=== PATIENT | male | born 1935 | race Caucasian/White ===

== ENCOUNTER 2018-08-03 09:56 | Emergency (ER) | payer MEDICARE, MEDICAID ==
[2018-08-03 10:17] VITALS: BP 107/63
--- NOTE | 2018-08-03 10:25 | EDM.PDOC ---
ED HPI GENERAL MEDICAL PROBLEM - General Chief Complaint: Neurological Problem Stated Complaint: CONFUSION-AMBULANCE Time Seen by Provider: 08/03/18 10:05 Source of Information: Reports: Patient History Limitations: Reports: No Limitations - History of Present Illness INITIAL COMMENTS - FREE TEXT/NARRATIVE: This 83 yo male patient was brought to the ED by [facility] due to confusion reported by the patient's family and a social service coordinator. The patient's daughter reported that she was talking to the patient on the phone last night and the patient stated that his phone does not work as he was talking to her on the phone. The patient reports nothing in wrong except for "a bunch of women getting together. " The patient reports he is feeling normal, but does not want to be here. The patient reports he has shortness of breath, but that is normal for him. The patient reports vision problems, but that has been continuous. The patient denies any chest pain, nausea, vomiting, diarrhea or frequent urination. The patient denies any recent falls. The patient reports decreased movement of his right leg, but states it has been the "bad one" for years. The patient's daughter report the patient was having "unusual confusion". The patient has difficulties ambulating at home. The patient could not get his briefs on. The patient did report to the social service coordinator that he was not feeling well, but the patient initially did not want to come to the ED. 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 - Related Data Allergies Allergy/AdvReac Type Severity Reaction Status Date / Time Penicillins Allergy Hives Verified 08/03/18 10:18 Home Meds: Home Meds Canagliflozin [Invokana] 1 tab PO DAILY 01/01/15 [History] Digoxin [Digox] 1 tab PO DAILY 01/01/15 [History] Dutasteride [Avodart] 1 cap PO DAILY 01/01/15 [History] Fesoterodine Fumarate [Toviaz] 1 tab PO DAILY 01/01/15 [History] Insulin Glarg,Human.Rec.Analog [LantUS Solostar] 40 units INJECT DAILY 01/01/15 [History] Metoprolol Succinate [Toprol XL] 1 tab PO DAILY 01/01/15 [History] Pregabalin [Lyrica] 1 tab PO TID 01/01/15 [History] Simvastatin 1 tab PO DAILY 01/01/15 [History] Tamsulosin [Flomax] 1 tab PO DAILY 01/01/15 [History] Warfarin [Coumadin] 1 tab PO DAILY 01/01/15 [History] Past Medical History HEENT History: Reports: Impaired Vision Cardiovascular History: Reports: Afib, High Cholesterol Respiratory History: Reports: COPD Gastrointestinal History: Reports: None Genitourinary History: Reports: Prostate Disorder Musculoskeletal History: Reports: None Neurological History: Reports: None Psychiatric History: Reports: Depression Endocrine/Metabolic History: Reports: Diabetes, Type II Hematologic History: Reports: None Immunologic History: Reports: None Oncologic (Cancer) History: Reports: None Dermatologic History: Reports: Other (See Below) Other Dermatologic History: sores under arms bilaterally and in groin area - Infectious Disease History Infectious Disease History: Reports: None - Past Surgical History Head Surgeries/Procedures: Reports: None Social & Family History - Family History Family Medical History: Noncontributory - Tobacco Use Smoking Status *Q: Current Every Day Smoker Years of Tobacco use: 40 Packs/Tins Daily: 1 - Caffeine Use Caffeine Use: Reports: Coffee, Soda - Recreational Drug Use Recreational Drug Use: No ED ROS GENERAL - Review of Systems Review Of Systems: ROS reveals no pertinent complaints other than HPI. - Physical Exam Exam: See Below Exam Limited By: No Limitations General Appearance: Alert, WD/WN, No Apparent Distress, Obese Eye Exam: Bilateral Eye: EOMI, Normal Inspection, PERRL, Other (Eyeglasses) Ears: Normal External Exam, Normal Canal, Hearing Grossly Normal, Normal TMs Nose: Normal Inspection, Normal Mucosa, No Blood Throat/Mouth: Normal Inspection, Normal Lips, Normal Teeth, Normal Gums, Normal Oropharynx, Normal Voice, No Airway Compromise, Other (dry) Head Exam: Atraumatic, Normocephalic Neck: Normal Inspection, Supple, Non-Tender, Full Range of Motion Respiratory/Chest: No Respiratory Distress, Lungs Clear, Chest Non-Tender, Decreased Breath Sounds Cardiovascular: Normal Peripheral Pulses, Regular Rate, Rhythm, No Gallop, No JVD, No Rub GI/Abdominal: Other (Morbid obesity) (Male) Exam: Deferred Rectal (Males) Exam: Deferred Neuro Exam (Abbreviated): Alert, Oriented, Normal Cognition Back Exam: Normal Inspection Extremities: Pedal Edema, Arm Pain (erythema of the left upper axilla) Psychiatric: Normal Affect, Normal Mood Skin Exam: Erythema (left axilla) Course - Vital Signs Last Recorded V/S: Last Vital Signs Temp 36.8 C 08/03/18 10:01 Pulse 73 08/03/18 10:01 Resp 20 08/03/18 10:01 BP 107/63 08/03/18 10:01 Pulse Ox 96 08/03/18 10:01 - Orders/Labs/Meds Orders: Active Orders 24 hr Category Date Time Status EKG Documentation Completion [RC] URGENT Care 08/03/18 10:10 Active CULTURE BLOOD [BC] Stat Lab 08/03/18 10:20 Received UA RFX WILBERTO AND CULT IF INDIC [URIN] Urgent Lab 08/03/18 10:10 Ordered Labs: Laboratory Tests 08/03/18 08/03/18 08/03/18 Range/Units 10:32 10:32 10:32 WBC (5.0-10.0) 10^3/uL RBC (4.6-6.2) 10^6/uL Hgb (14.0-18.0) g/dL Hct (40.0-54.0) % MCV (80-100) fL MCH (27.0-34.0) pg MCHC (33.0-35.0) g/dL Plt Count (150-450) 10^3/uL Neut % (Auto) (42.2-75.2) % Lymph % (Auto) (20.5-50.1) % [place] % (Auto) (2-8) % Eos % (Auto) (1.0-3.0) % Baso % (Auto) (0.0-1.0) % PT 43.9 H (9.0-12.0) SEC INR 4.6 H (0.9-1.2) Sodium (135-145) mmol/L Potassium (3.6-5.0) mmol/L Chloride (101-111) mmol/L Carbon Dioxide (21.0-31.0) mmol/L Anion Gap BUN (7-18) mg/dL Creatinine (0.6-1.3) mg/dL Est Cr Clr Drug Dosing mL/min Estimated GFR (MDRD) BUN/Creatinine Ratio Glucose (74-105) mg/dL Lactic Acid 1.7 (0.5-2.2) mmol/L Calcium (8.4-10.2) mg/dl Total Bilirubin (0.2-1.0) mg/dL AST (10-42) IU/L ALT (10-60) IU/L Alkaline Phosphatase (42-121) IU/L Troponin I (0.00-0.02) ng/ml B-Natriuretic Peptide 60 (0-100) pg/ml Total Protein (6.7-8.2) g/dl Albumin (3.2-5.5) g/dl Globulin Albumin/Globulin Ratio Digoxin (0-2.5) ng/ml 08/03/18 08/03/18 08/03/18 Range/Units 10:32 10:32 10:32 WBC 9.0 (5.0-10.0) 10^3/uL RBC 4.57 L (4.6-6.2) 10^6/uL Hgb 14.5 (14.0-18.0) g/dL Hct 45.3 (40.0-54.0) % MCV 99.1 D (80-100) fL MCH 31.7 (27.0-34.0) pg MCHC 32.0 L (33.0-35.0) g/dL Plt Count 218 (150-450) 10^3/uL Neut % (Auto) 61.3 (42.2-75.2) % Lymph % (Auto) 24.8 (20.5-50.1) % [place] % (Auto) 12.2 H (2-8) % Eos % (Auto) 1.3 (1.0-3.0) % Baso % (Auto) 0.4 (0.0-1.0) % PT (9.0-12.0) SEC INR (0.9-1.2) Sodium 137 (135-145) mmol/L Potassium 4.1 (3.6-5.0) mmol/L Chloride 101 (101-111) mmol/L Carbon Dioxide 26.0 (21.0-31.0) mmol/L Anion Gap 14.1 BUN 18 (7-18) mg/dL Creatinine 1.2 (0.6-1.3) mg/dL Est Cr Clr Drug Dosing 49.85 mL/min Estimated GFR (MDRD) 58 BUN/Creatinine Ratio 15.00 Glucose 93 (74-105) mg/dL Lactic Acid (0.5-2.2) mmol/L Calcium 8.9 (8.4-10.2) mg/dl Total Bilirubin 1.6 H (0.2-1.0) mg/dL AST 25 (10-42) IU/L ALT 12 (10-60) IU/L Alkaline Phosphatase 54 (42-121) IU/L Troponin I < 0.02 (0.00-0.02) ng/ml B-Natriuretic Peptide (0-100) pg/ml Total Protein 7.3 (6.7-8.2) g/dl Albumin 4.0 (3.2-5.5) g/dl Globulin 3.3 Albumin/Globulin Ratio 1.21 Digoxin 3.8 H* (0-2.5) ng/ml Departure - Departure Time of Disposition: 12:55 Disposition: Home, Self-Care 01 Condition: Fair Clinical Impression: Transient confusion - Discharge Information *PRESCRIPTION DRUG MONITORING PROGRAM REVIEWED*: Not Applicable *COPY OF PRESCRIPTION DRUG MONITORING REPORT IN PATIENT CLINT: Not Applicable Forms: ED Department Discharge Care Plan Goals: The patient was advised of the examination, lab and EKG results during the visit. No abnormalities were found on examination. The patient was encouraged to follow-up with his primary care facility for any additional symptoms. If the patient has any additional symptoms or concerns, the patient should either return to the emergency department or visit his primary care facility. - My Orders Last 24 Hours: My Active Orders 08/03/18 10:10 EKG Documentation Completion [RC] URGENT UA RFX WILBERTO AND CULT IF INDIC [URIN] Urgent 08/03/18 10:20 CULTURE BLOOD [BC] Stat - Assessment/Plan Last 24 Hours: My Active Orders 08/03/18 10:10 EKG Documentation Completion [RC] URGENT UA RFX WILBERTO AND CULT IF INDIC [URIN] Urgent 08/03/18 10:20 CULTURE BLOOD [BC] Stat
[2018-08-03 11:02] LABS: ANION GAP 14.1; CHLORIDE,CL 101 mmol/L (101-111); SODIUM,NA 137 mmol/L (135-145)
--- NOTE | 2018-08-03 11:43 | CR ---
Clinical history: 83-year-old male with shortness of breath and altered mentation. No previous chest radiographs available. Interpretation: Normal cardiac silhouette without signs of alveolar edema or dependent effusion. Reasonable inspiratory effort obese male. No lung mass, hilar lymphadenopathy or focal lobar pneumonia (lingular atelectasis/fibrosis). No pneumothorax.
== END 2018-08-03 13:26 | disposition home or self-care (01) ==
LOC: DL.ED 09:56
DX: R41.0 Disorientation, unspecified (principal); I48.91 Unspecified atrial fibrillation; E78.00 Pure hypercholesterolemia, unspecified; J44.9 Chronic obstructive pulmonary disease, unspecified; F17.210 Nicotine dependence, cigarettes, uncomplicated; Z88.0 Allergy status to penicillin; Z79.899 Other long term (current) drug therapy
CPT/HCPCS: 36415; 71045; 80053; 80162; 83605; 83880; 84484; 85025; 85610; 87040; 93005; 99284-25

== ENCOUNTER 2018-08-19 22:10 | Emergency (ER) | payer MEDICARE, MEDICAID ==
--- NOTE | 2018-08-19 22:11 | EDM.PDOC ---
<Kiran Clayton - Last Filed: 08/20/18 06:37> ED HPI GENERAL MEDICAL PROBLEM - General Chief Complaint: General Stated Complaint: AMBULANCE Time Seen by Provider: 08/19/18 22:08 Source of Information: Reports: Patient, EMS History Limitations: Reports: No Limitations - History of Present Illness INITIAL COMMENTS - FREE TEXT/NARRATIVE: EMS state called for pt with freq falls and neighbour concerned. pt refused to come to hosp and doesn't want alf. no c/o SPEARS/CP/SOB. states feels weak. EMS noticed pt confused. Left Axillary Pain Score (Numeric/FACES): 5 - Related Data Allergies Allergy/AdvReac Type Severity Reaction Status Date / Time Penicillins Allergy Hives Verified 08/03/18 10:18 Home Meds: Home Meds Canagliflozin [Invokana] 1 tab PO DAILY 01/01/15 [History] Digoxin [Digox] 1 tab PO DAILY 01/01/15 [History] Dutasteride [Avodart] 1 cap PO DAILY 01/01/15 [History] Fesoterodine Fumarate [Toviaz] 1 tab PO DAILY 01/01/15 [History] Insulin Glarg,Human.Rec.Analog [LantUS Solostar] 40 units INJECT DAILY 01/01/15 [History] Metoprolol Succinate [Toprol XL] 1 tab PO DAILY 01/01/15 [History] Pregabalin [Lyrica] 1 tab PO TID 01/01/15 [History] Simvastatin 1 tab PO DAILY 01/01/15 [History] Tamsulosin [Flomax] 1 tab PO DAILY 01/01/15 [History] Warfarin [Coumadin] 1 tab PO DAILY 01/01/15 [History] Azithromycin [Zithromax] 250 mg PO DAILY 08/19/18 [History] Past Medical History HEENT History: Reports: Impaired Vision Cardiovascular History: Reports: Afib, High Cholesterol Respiratory History: Reports: COPD Gastrointestinal History: Reports: None Genitourinary History: Reports: Prostate Disorder Musculoskeletal History: Reports: None Neurological History: Reports: None Psychiatric History: Reports: Depression Endocrine/Metabolic History: Reports: Diabetes, Type II Hematologic History: Reports: None Immunologic History: Reports: None Oncologic (Cancer) History: Reports: None Dermatologic History: Reports: Other (See Below) Other Dermatologic History: sores under arms bilaterally and in groin area - Infectious Disease History Infectious Disease History: Reports: None - Past Surgical History Head Surgeries/Procedures: Reports: None Social & Family History - Family History Family Medical History: Noncontributory - Caffeine Use Caffeine Use: Reports: Coffee, Soda ED ROS GENERAL - Review of Systems Review Of Systems: ROS reveals no pertinent complaints other than HPI. ED EXAM, GENERAL - Physical Exam Exam: See Below Exam Limited By: No Limitations General Appearance: Alert, WD/WN, No Apparent Distress Eye Exam: Bilateral Eye: PERRL (pupils ess ER @ 4mm) Ears: Hearing Grossly Normal Throat/Mouth: Normal Voice, No Airway Compromise Head: Atraumatic Neck: Non-Tender, Full Range of Motion Respiratory/Chest: No Respiratory Distress, No Accessory Muscle Use, Rhonchi Cardiovascular: Regular Rate, Rhythm GI/Abdominal: Soft, Non-Tender Neurological: Alert, Normal Cognition, No Motor/Sensory Deficits Psychiatric: Flat Affect Skin Exam: Warm, Dry, Rash, Other (inter-triginous dermatitis in skin fold of abd and axilla) Lymphatic: No Adenopathy Course - Vital Signs Last Recorded V/S: Last Vital Signs Temp 97.6 F 08/20/18 12:31 Pulse 71 08/20/18 12:31 Resp 20 08/20/18 12:31 BP 142/56 H 08/20/18 12:31 Pulse Ox 97 08/20/18 12:31 - Orders/Labs/Meds Orders: Active Orders 24 hr Category Date Time Status EKG 12 Lead [EKG Documentation Completion] [RC] STAT Care 08/19/18 22:07 Active Guillaume Catheter Insertion [Insert Urinary Catheter] [OM. Care 08/19/18 23:15 Ordered PC] Q24H Urinary Catheter Assessment [RC] ASDIRECTED Care 08/19/18 23:05 Active CULTURE BLOOD [BC] Stat Lab 08/19/18 22:10 Received Labs: Laboratory Tests 08/19/18 08/19/18 08/19/18 Range/Units 22:10 22:10 22:10 WBC 9.2 (5.0-10.0) 10^3/uL RBC 4.49 L (4.6-6.2) 10^6/uL Hgb 14.3 (14.0-18.0) g/dL Hct 43.8 (40.0-54.0) % MCV 97.6 (80-100) fL MCH 31.8 (27.0-34.0) pg MCHC 32.6 L (33.0-35.0) g/dL Plt Count 250 (150-450) 10^3/uL Neut % (Auto) 68.7 (42.2-75.2) % Lymph % (Auto) 18.9 L (20.5-50.1) % [place] % (Auto) 12.1 H (2-8) % Eos % (Auto) 0.1 L (1.0-3.0) % Baso % (Auto) 0.2 (0.0-1.0) % PT 32.1 H (9.0-12.0) SEC INR 3.3 H (0.9-1.2) Sodium 134 L (135-145) mmol/L Potassium 3.9 (3.6-5.0) mmol/L Chloride 101 (101-111) mmol/L Carbon Dioxide 23.0 (21.0-31.0) mmol/L Anion Gap 13.9 BUN 22 H (7-18) mg/dL Creatinine 1.3 (0.6-1.3) mg/dL Est Cr Clr Drug Dosing 48.91 mL/min Estimated GFR (MDRD) 53 BUN/Creatinine Ratio 16.92 Glucose 91 (74-105) mg/dL Lactic Acid (0.5-2.2) mmol/L Calcium 8.7 (8.4-10.2) mg/dl Total Bilirubin 1.7 H (0.2-1.0) mg/dL AST 21 (10-42) IU/L ALT 12 (10-60) IU/L Alkaline Phosphatase 56 (42-121) IU/L Troponin I 0.03 H* (0.00-0.02) ng/ml B-Natriuretic Peptide (0-100) pg/ml Total Protein 7.1 (6.7-8.2) g/dl Albumin 4.0 (3.2-5.5) g/dl Globulin 3.1 Albumin/Globulin Ratio 1.29 Urine Color (YELLOW) Urine Appearance (CLEAR) Urine pH (5.0-9.0) Ur Specific [place] (1.005-1.030) Urine Protein (NEGATIVE) Urine Glucose (UA) (NEGATIVE) Urine Ketones (NEGATIVE) Urine Occult Blood (NEGATIVE) Urine Nitrite (NEGATIVE) Urine Bilirubin (NEGATIVE) Urine Urobilinogen (0.2-1.0) mg/dL Ur Leukocyte Esterase (NEGATIVE) Urine RBC /HPF Urine WBC (0-5/HPF) /HPF Ur Epithelial Cells (NOT SEEN) /HPF Urine Bacteria (0-FEW/HPF) /HPF Urine Mucus (NOT SEEN) /LPF 08/19/18 08/19/18 08/19/18 Range/Units 22:10 22:10 23:15 WBC (5.0-10.0) 10^3/uL RBC (4.6-6.2) 10^6/uL Hgb (14.0-18.0) g/dL Hct (40.0-54.0) % MCV (80-100) fL MCH (27.0-34.0) pg MCHC (33.0-35.0) g/dL Plt Count (150-450) 10^3/uL Neut % (Auto) (42.2-75.2) % Lymph % (Auto) (20.5-50.1) % [place] % (Auto) (2-8) % Eos % (Auto) (1.0-3.0) % Baso % (Auto) (0.0-1.0) % PT (9.0-12.0) SEC INR (0.9-1.2) Sodium (135-145) mmol/L Potassium (3.6-5.0) mmol/L Chloride (101-111) mmol/L Carbon Dioxide (21.0-31.0) mmol/L Anion Gap BUN (7-18) mg/dL Creatinine (0.6-1.3) mg/dL Est Cr Clr Drug Dosing mL/min Estimated GFR (MDRD) BUN/Creatinine Ratio Glucose (74-105) mg/dL Lactic Acid 1.5 (0.5-2.2) mmol/L Calcium (8.4-10.2) mg/dl Total Bilirubin (0.2-1.0) mg/dL AST (10-42) IU/L ALT (10-60) IU/L Alkaline Phosphatase (42-121) IU/L Troponin I (0.00-0.02) ng/ml B-Natriuretic Peptide 128 H (0-100) pg/ml Total Protein (6.7-8.2) g/dl Albumin (3.2-5.5) g/dl Globulin Albumin/Globulin Ratio Urine Color Dark yellow (YELLOW) Urine Appearance Slightly cloudy (CLEAR) Urine pH 5.0 (5.0-9.0) Ur Specific [place] >= 1.030 (1.005-1.030) Urine Protein 30 H (NEGATIVE) Urine Glucose (UA) 500 H (NEGATIVE) Urine Ketones Trace H (NEGATIVE) Urine Occult Blood Negative (NEGATIVE) Urine Nitrite Negative (NEGATIVE) Urine Bilirubin Negative (NEGATIVE) Urine Urobilinogen 0.2 (0.2-1.0) mg/dL Ur Leukocyte Esterase Negative (NEGATIVE) Urine RBC Not seen /HPF Urine WBC 5-10 H (0-5/HPF) /HPF Ur Epithelial Cells Moderate H (NOT SEEN) /HPF Urine Bacteria Many H (0-FEW/HPF) /HPF Urine Mucus Many H (NOT SEEN) /LPF 08/20/18 Range/Units 06:49 WBC (5.0-10.0) 10^3/uL RBC (4.6-6.2) 10^6/uL Hgb (14.0-18.0) g/dL Hct (40.0-54.0) % MCV (80-100) fL MCH (27.0-34.0) pg MCHC (33.0-35.0) g/dL Plt Count (150-450) 10^3/uL Neut % (Auto) (42.2-75.2) % Lymph % (Auto) (20.5-50.1) % [place] % (Auto) (2-8) % Eos % (Auto) (1.0-3.0) % Baso % (Auto) (0.0-1.0) % PT (9.0-12.0) SEC INR (0.9-1.2) Sodium (135-145) mmol/L Potassium (3.6-5.0) mmol/L Chloride (101-111) mmol/L Carbon Dioxide (21.0-31.0) mmol/L Anion Gap BUN (7-18) mg/dL Creatinine (0.6-1.3) mg/dL Est Cr Clr Drug Dosing mL/min Estimated GFR (MDRD) BUN/Creatinine Ratio Glucose (74-105) mg/dL Lactic Acid (0.5-2.2) mmol/L Calcium (8.4-10.2) mg/dl Total Bilirubin (0.2-1.0) mg/dL AST (10-42) IU/L ALT (10-60) IU/L Alkaline Phosphatase (42-121) IU/L Troponin I 0.02 (0.00-0.02) ng/ml B-Natriuretic Peptide (0-100) pg/ml Total Protein (6.7-8.2) g/dl Albumin (3.2-5.5) g/dl Globulin Albumin/Globulin Ratio Urine Color (YELLOW) Urine Appearance (CLEAR) Urine pH (5.0-9.0) Ur Specific [place] (1.005-1.030) Urine Protein (NEGATIVE) Urine Glucose (UA) (NEGATIVE) Urine Ketones (NEGATIVE) Urine Occult Blood (NEGATIVE) Urine Nitrite (NEGATIVE) Urine Bilirubin (NEGATIVE) Urine Urobilinogen (0.2-1.0) mg/dL Ur Leukocyte Esterase (NEGATIVE) Urine RBC /HPF Urine WBC (0-5/HPF) /HPF Ur Epithelial Cells (NOT SEEN) /HPF Urine Bacteria (0-FEW/HPF) /HPF Urine Mucus (NOT SEEN) /LPF Meds: Medications Discontinued Medications Generic Name Dose Route Start Last Admin Trade Name Angelica PRN Reason Stop Dose Admin Loperamide HCl 2 mg 08/20/18 14:44 08/20/18 15:07 Imodium PO 08/20/18 14:45 2 mg ONETIME ONE Administration - Re-Assessments/Exams Free Text/Narrative Re-Assessment/Exam: 08/20/18 00:[address] Fam who kindly admitted pt to observation. but pt refused to be admitted and shushed away Dr Fam. pt's daughter did mention pt has also been quite resistance towards her about alf placement. 08/20/18 06:38 Caio from crisis contacted who states Roxana from social service assistant will be arriving to arrange placement for pt as vulnerable adult Departure - Departure Time of Disposition: 00:04 Disposition: Against Medical Advice 07 Condition: Fair Clinical Impression: Transient confusion, UTI, Urinary tract infectious disease, COPD exacerbation, Pneumonia, Hypoxemia, Non compliance with medical treatment - Discharge Information Referrals: PCP,None [Primary Care Provider] - Forms: Refusal of Care AMA <Ida Patel - Last Filed: 08/20/18 16:06> Departure - Departure Time of Disposition: 15:50 Condition: Poor - Discharge Information *PRESCRIPTION DRUG MONITORING PROGRAM REVIEWED*: No *COPY OF PRESCRIPTION DRUG MONITORING REPORT IN PATIENT CLINT: No
[2018-08-19 22:38] LABS: ANION GAP 13.9
[2018-08-20 12:32] VITALS: BP 142/56
[2018-08-20] MEDS ORDERED: Loperamide 2 MG Cap PO ONE (14:44)
== END 2018-08-20 15:15 | disposition left against medical advice (07) ==
LOC: DL.ED 22:10
DX: R41.0 Disorientation, unspecified (principal); N39.0 Urinary tract infection, site not specified; J44.0 Chronic obstructive pulmonary disease with (acute) lower respiratory infection; J18.9 Pneumonia, unspecified organism; J44.1 Chronic obstructive pulmonary disease with (acute) exacerbation; R29.6 Repeated falls; R09.02 Hypoxemia; Z91.14 Patient's other noncompliance with medication regimen; I48.91 Unspecified atrial fibrillation; E11.9 Type 2 diabetes mellitus without complications; Z79.01 Long term (current) use of anticoagulants; Z79.899 Other long term (current) drug therapy; Z79.4 Long term (current) use of insulin; Z88.0 Allergy status to penicillin
CPT/HCPCS: 36415; 51702; 70450; 71045; 80053; 81001; 83605; 83880; 84484; 85025; 85610; 87040; 93005; 99285; A9270

== ENCOUNTER 2018-09-06 17:15 | Emergency (ER) | payer MEDICARE, MEDICAID ==
[2018-09-06 18:20] LABS: ANION GAP 17.1; CHLORIDE,CL 101 mmol/L (101-111); SODIUM,NA 137 mmol/L (135-145)
[2018-09-06] MEDS ORDERED: LORazepam 2 MG/ML Syringe IVPUSH ONE (19:37)
[2018-09-06 20:30] VITALS: BP 105/44
[2018-09-06] MEDS ORDERED: Sodium Chloride 0.9% 1,000 ML IV ONE (20:54)
[2018-09-06] MEDS ORDERED: 50% Dextrose in Water 50 ML Syringe IVPUSH ONE (20:58)
--- NOTE | 2018-09-07 12:44 | EDM.PDOC ---
Scribed by Brigette Andrew 09/06/18 [id number] for Solo Sheets PA <Milagros Pedroza - Last Filed: 09/07/18 04:10> ED HPI GENERAL MEDICAL PROBLEM - General Chief Complaint: General Stated Complaint: AMBULANCE Time Seen by Provider: 09/06/18 17:45 - Related Data Allergies Allergy/AdvReac Type Severity Reaction Status Date / Time Penicillins Allergy Hives Verified 08/03/18 10:18 Home Meds: Home Meds Canagliflozin [Invokana] 1 tab PO DAILY 01/01/15 [History] Digoxin [Digox] 1 tab PO DAILY 01/01/15 [History] Dutasteride [Avodart] 1 cap PO DAILY 01/01/15 [History] Fesoterodine Fumarate [Toviaz] 1 tab PO DAILY 01/01/15 [History] Insulin Glarg,Human.Rec.Analog [LantUS Solostar] 40 units INJECT DAILY 01/01/15 [History] Metoprolol Succinate [Toprol XL] 1 tab PO DAILY 01/01/15 [History] Pregabalin [Lyrica] 1 tab PO TID 01/01/15 [History] Simvastatin 1 tab PO DAILY 01/01/15 [History] Tamsulosin [Flomax] 1 tab PO DAILY 01/01/15 [History] Warfarin [Coumadin] 1 tab PO DAILY 01/01/15 [History] Azithromycin [Zithromax] 250 mg PO DAILY 08/19/18 [History] ED EXAM, GENERAL - Physical Exam Respiratory/Chest: Wheezing (expiratory bilateral) Extremities: Pedal Edema (3+) Skin Exam: Warm, Dry, Rash (dry scaley anterior legs and feet. sudhir area excoriated), Other Course - Vital Signs Last Recorded V/S: Last Vital Signs Temp 36.6 C 09/06/18 20:29 Pulse 68 09/06/18 20:29 Resp 18 09/06/18 20:29 BP 105/44 L 09/06/18 20:29 Pulse Ox 84 L 09/06/18 20:29 - Orders/Labs/Meds Orders: Active Orders 24 hr Category Date Time Status EKG Documentation Completion [RC] URGENT Care 09/06/18 17:24 Active Glucose [Blood Glucose Check, Bedside] [RC] ONETIME Care 09/06/18 20:54 Active CULTURE BLOOD [BC] Stat Lab 09/06/18 17:40 Received CULTURE URINE [RM] Stat Lab 09/06/18 17:30 Received Labs: Laboratory Tests 09/06/18 09/06/18 09/06/18 Range/Units 17:30 17:30 17:40 WBC (5.0-10.0) 10^3/uL RBC (4.6-6.2) 10^6/uL Hgb (14.0-18.0) g/dL Hct (40.0-54.0) % MCV (80-100) fL MCH (27.0-34.0) pg MCHC (33.0-35.0) g/dL Plt Count (150-450) 10^3/uL Neut % (Auto) (42.2-75.2) % Lymph % (Auto) (20.5-50.1) % [place] % (Auto) (2-8) % Eos % (Auto) (1.0-3.0) % Baso % (Auto) (0.0-1.0) % PT (9.0-12.0) SEC INR (0.9-1.2) Sodium (135-145) mmol/L Potassium (3.6-5.0) mmol/L Chloride (101-111) mmol/L Carbon Dioxide (21.0-31.0) mmol/L Anion Gap BUN (7-18) mg/dL Creatinine (0.6-1.3) mg/dL Est Cr Clr Drug Dosing Estimated GFR (MDRD) BUN/Creatinine Ratio Glucose (74-105) mg/dL POC Glucose (83-110) mg/dl Lactic Acid (0.5-2.2) mmol/L Calcium (8.4-10.2) mg/dl Total Bilirubin (0.2-1.0) mg/dL AST (10-42) IU/L ALT (10-60) IU/L Alkaline Phosphatase (42-121) IU/L Ammonia (11-35) umol/L Troponin I (0.00-0.02) ng/ml Total Protein (6.7-8.2) g/dl Albumin (3.2-5.5) g/dl Globulin Albumin/Globulin Ratio Amylase 18 L (28-100) U/L Lipase 18 L (22-51) U/L Urine Color Yellow (YELLOW) Urine Appearance Turbid (CLEAR) Urine pH 6.0 (5.0-9.0) Ur Specific [place] 1.015 (1.005-1.030) Urine Protein 30 H (NEGATIVE) Urine Glucose (UA) >=1000 H (NEGATIVE) Urine Ketones Trace H (NEGATIVE) Urine Occult Blood Large H (NEGATIVE) Urine Nitrite Negative (NEGATIVE) Urine Bilirubin Negative (NEGATIVE) Urine Urobilinogen 1.0 (0.2-1.0) mg/dL Ur Leukocyte Esterase Small H (NEGATIVE) Urine RBC >100 H /HPF Urine WBC Packed H (0-5/HPF) /HPF Ur Epithelial Cells Few (NOT SEEN) /HPF Amorphous Sediment Few (NOT SEEN) /HPF Urine Bacteria Moderate H (0-FEW/HPF) /HPF Urine Mucus Few H (NOT SEEN) /LPF Urine Yeast Many H (NOT SEEN) /HPF Urine Opiates Screen Negative (NEGATIVE) Ur Oxycodone Screen Negative (NEGATIVE) Urine Methadone Screen Negative (NEGATIVE) Ur Barbiturates Screen Negative (NEGATIVE) U Tricyclic Antidepress Negative (NEGATIVE) Ur Phencyclidine Scrn Negative (NEGATIVE) Ur Amphetamine Screen Negative (NEGATIVE) U Methamphetamines Scrn Negative (NEGATIVE) Urine MDMA Screen Negative (NEGATIVE) U Benzodiazepines Scrn Negative (NEGATIVE) Urine Cocaine Screen Negative (NEGATIVE) U Marijuana (THC) Screen Negative (NEGATIVE) Ethyl Alcohol < 5 mg/dL 09/06/18 09/06/18 09/06/18 Range/Units 17:40 17:40 17:40 WBC 7.5 (5.0-10.0) 10^3/uL RBC 4.90 (4.6-6.2) 10^6/uL Hgb 15.5 (14.0-18.0) g/dL Hct 47.6 (40.0-54.0) % MCV 97.1 (80-100) fL MCH 31.6 (27.0-34.0) pg MCHC 32.6 L (33.0-35.0) g/dL Plt Count 239 (150-450) 10^3/uL Neut % (Auto) 74.3 (42.2-75.2) % Lymph % (Auto) 12.1 L (20.5-50.1) % [place] % (Auto) 12.9 H (2-8) % Eos % (Auto) 0.4 L (1.0-3.0) % Baso % (Auto) 0.3 (0.0-1.0) % PT (9.0-12.0) SEC INR (0.9-1.2) Sodium (135-145) mmol/L Potassium (3.6-5.0) mmol/L Chloride (101-111) mmol/L Carbon Dioxide (21.0-31.0) mmol/L Anion Gap BUN (7-18) mg/dL Creatinine (0.6-1.3) mg/dL Est Cr Clr Drug Dosing Estimated GFR (MDRD) BUN/Creatinine Ratio Glucose (74-105) mg/dL POC Glucose (83-110) mg/dl Lactic Acid 2.0 (0.5-2.2) mmol/L Calcium (8.4-10.2) mg/dl Total Bilirubin (0.2-1.0) mg/dL AST (10-42) IU/L ALT (10-60) IU/L Alkaline Phosphatase (42-121) IU/L Ammonia 13 (11-35) umol/L Troponin I (0.00-0.02) ng/ml Total Protein (6.7-8.2) g/dl Albumin (3.2-5.5) g/dl Globulin Albumin/Globulin Ratio Amylase (28-100) U/L Lipase (22-51) U/L Urine Color (YELLOW) Urine Appearance (CLEAR) Urine pH (5.0-9.0) Ur Specific [place] (1.005-1.030) Urine Protein (NEGATIVE) Urine Glucose (UA) (NEGATIVE) Urine Ketones (NEGATIVE) Urine Occult Blood (NEGATIVE) Urine Nitrite (NEGATIVE) Urine Bilirubin (NEGATIVE) Urine Urobilinogen (0.2-1.0) mg/dL Ur Leukocyte Esterase (NEGATIVE) Urine RBC /HPF Urine WBC (0-5/HPF) /HPF Ur Epithelial Cells (NOT SEEN) /HPF Amorphous Sediment (NOT SEEN) /HPF Urine Bacteria (0-FEW/HPF) /HPF Urine Mucus (NOT SEEN) /LPF Urine Yeast (NOT SEEN) /HPF Urine Opiates Screen (NEGATIVE) Ur Oxycodone Screen (NEGATIVE) Urine Methadone Screen (NEGATIVE) Ur Barbiturates Screen (NEGATIVE) U Tricyclic Antidepress (NEGATIVE) Ur Phencyclidine Scrn (NEGATIVE) Ur Amphetamine Screen (NEGATIVE) U Methamphetamines Scrn (NEGATIVE) Urine MDMA Screen (NEGATIVE) U Benzodiazepines Scrn (NEGATIVE) Urine Cocaine Screen (NEGATIVE) U Marijuana (THC) Screen (NEGATIVE) Ethyl Alcohol mg/dL 09/06/18 09/06/18 09/06/18 Range/Units 17:40 17:40 20:57 WBC (5.0-10.0) 10^3/uL RBC (4.6-6.2) 10^6/uL Hgb (14.0-18.0) g/dL Hct (40.0-54.0) % MCV (80-100) fL MCH (27.0-34.0) pg MCHC (33.0-35.0) g/dL Plt Count (150-450) 10^3/uL Neut % (Auto) (42.2-75.2) % Lymph % (Auto) (20.5-50.1) % [place] % (Auto) (2-8) % Eos % (Auto) (1.0-3.0) % Baso % (Auto) (0.0-1.0) % PT 54.6 H D (9.0-12.0) SEC INR 5.9 H* (0.9-1.2) Sodium 137 (135-145) mmol/L Potassium 4.1 (3.6-5.0) mmol/L Chloride 101 (101-111) mmol/L Carbon Dioxide 23.0 (21.0-31.0) mmol/L Anion Gap 17.1 BUN 21 H (7-18) mg/dL Creatinine 1.1 (0.6-1.3) mg/dL Est Cr Clr Drug Dosing TNP Estimated GFR (MDRD) > 60 BUN/Creatinine Ratio 19.09 Glucose 93 (74-105) mg/dL POC Glucose 50 L (83-110) mg/dl Lactic Acid (0.5-2.2) mmol/L Calcium 9.0 (8.4-10.2) mg/dl Total Bilirubin 1.5 H (0.2-1.0) mg/dL AST 36 (10-42) IU/L ALT 18 (10-60) IU/L Alkaline Phosphatase 75 (42-121) IU/L Ammonia (11-35) umol/L Troponin I < 0.02 (0.00-0.02) ng/ml Total Protein 7.5 (6.7-8.2) g/dl Albumin 4.1 (3.2-5.5) g/dl Globulin 3.4 Albumin/Globulin Ratio 1.21 Amylase (28-100) U/L Lipase (22-51) U/L Urine Color (YELLOW) Urine Appearance (CLEAR) Urine pH (5.0-9.0) Ur Specific [place] (1.005-1.030) Urine Protein (NEGATIVE) Urine Glucose (UA) (NEGATIVE) Urine Ketones (NEGATIVE) Urine Occult Blood (NEGATIVE) Urine Nitrite (NEGATIVE) Urine Bilirubin (NEGATIVE) Urine Urobilinogen (0.2-1.0) mg/dL Ur Leukocyte Esterase (NEGATIVE) Urine RBC /HPF Urine WBC (0-5/HPF) /HPF Ur Epithelial Cells (NOT SEEN) /HPF Amorphous Sediment (NOT SEEN) /HPF Urine Bacteria (0-FEW/HPF) /HPF Urine Mucus (NOT SEEN) /LPF Urine Yeast (NOT SEEN) /HPF Urine Opiates Screen (NEGATIVE) Ur Oxycodone Screen (NEGATIVE) Urine Methadone Screen (NEGATIVE) Ur Barbiturates Screen (NEGATIVE) U Tricyclic Antidepress (NEGATIVE) Ur Phencyclidine Scrn (NEGATIVE) Ur Amphetamine Screen (NEGATIVE) U Methamphetamines Scrn (NEGATIVE) Urine MDMA Screen (NEGATIVE) U Benzodiazepines Scrn (NEGATIVE) Urine Cocaine Screen (NEGATIVE) U Marijuana (THC) Screen (NEGATIVE) Ethyl Alcohol mg/dL Meds: Medications Discontinued Medications Generic Name Dose Route Start Last Admin Trade Name Angelica PRN Reason Stop Dose Admin Dextrose/Water 50 ml 09/06/18 20:58 09/06/18 21:05 Dextrose 50% In Water IVPUSH 09/06/18 20:59 50 ml ONETIME ONE Administration Aztreonam 1 gm/ Sodium 50 mls @ 100 mls/hr 09/06/18 20:29 09/06/18 20:46 Chloride IV 09/06/18 20:58 100 mls/hr ONETIME ONE Administration Sodium Chloride 1,000 mls @ 150 mls/hr 09/06/18 20:54 09/06/18 21:14 Normal Saline IV 09/07/18 03:33 150 mls/hr .BOLUS ONE Administration Lorazepam 2 mg 09/06/18 19:37 09/06/18 19:45 Ativan IVPUSH 09/06/18 19:38 2 mg ONETIME ONE Administration - Re-Assessments/Exams Free Text/Narrative Re-Assessment/Exam: TC received from "Crisis Counselor" Currently working on obtaining Order from [facility] for committal due to inability to care for self and potential risk to others when smoking with oxygen. Patient easily agitated striking at nurses. Attempting to get out of bed around rails. Head CT not done yet, will medicate with Ativan in order to obtain Head CT. Initial TC Dr Corrigan. Awaiting head CT results. 09/06/18 20:57 Results of xray and CT relayed to Dr Meenu Hanna. Accepting of patient. Transfe via [facility] Departure - Departure Time of Disposition: 20:51 Disposition: DC/Tfer to Acute Hospital 02 Condition: Undetermined Clinical Impression: Elevated INR, Alteration in self-care ability, Non compliance with medical treatment, Skin tear, IDDM (insulin dependent diabetes mellitus) UTI (urinary tract infection) Qualifiers: Urinary tract infection type: site unspecified Hematuria presence: with hematuria Qualified Code(s): N39.0 - Urinary tract infection, site not specified ; R31.9 - Hematuria, unspecified Fall at home Qualifiers: Encounter type: initial encounter Qualified Code(s): W19.XXXA - Unspecified fall, initial encounter; Y92.009 - Unspecified place in unspecified non- institutional (private) residence as the place of occurrence of the external cause Contusion of left temporofrontal scalp Qualifiers: Encounter type: initial encounter Qualified Code(s): S00.03XA - Contusion of scalp, initial encounter COPD (chronic obstructive pulmonary disease) Qualifiers: COPD type: unspecified COPD Qualified Code(s): J44.9 - Chronic obstructive pulmonary disease, unspecified Altered mental status, unspecified Qualifiers: Altered mental status type: transient alteration of awareness Qualified Code(s) : R40.4 - Transient alteration of awareness - Discharge Information Referrals: PCP,None [Primary Care Provider] - Forms: ED Department Discharge - My Orders Last 24 Hours: My Active Orders 09/06/18 17:24 EKG Documentation Completion [RC] URGENT 09/06/18 17:30 CULTURE URINE [RM] Stat 09/06/18 17:40 CULTURE BLOOD [BC] Stat - Assessment/Plan Last 24 Hours: My Active Orders 09/06/18 17:24 EKG Documentation Completion [RC] URGENT 09/06/18 17:30 CULTURE URINE [RM] Stat 09/06/18 17:40 CULTURE BLOOD [BC] Stat <Solo Sheets M - Last Filed: 09/07/18 12:44> ED HPI GENERAL MEDICAL PROBLEM - General Source of Information: Reports: Patient, EMS, EMS Notes Reviewed, RN, RN Notes Reviewed History Limitations: Reports: No Limitations - History of Present Illness INITIAL COMMENTS - FREE TEXT/NARRATIVE: Patient is an 83-year-old male who was brought to the Emergency Department by [facility] due to a fall and confusion. The patient reports he was getting out of the bathroom when he fell. The patient reports he knew he was going down, but could not catch himself. The patient lives by himself. The patient reports he took his antibiotics (last dose was Thursday). The patient was alert and oriented to person, place and time. The patient was seen in the emergency department 2 weeks ago for a UTI. The patient presented with urine soaked pants, urine soaked Depends and a urine soiled Depends in his pocket. Onset: Today Duration: Getting Worse Location: Reports: Generalized Quality: Reports: Ache Severity: Mild Improves with: Reports: None Worsens with: Reports: None Associated Symptoms: Reports: No Other Symptoms Past Medical History HEENT History: Reports: Impaired Vision Cardiovascular History: Reports: Afib, High Cholesterol Respiratory History: Reports: COPD Other Respiratory History: Patient still smokes Gastrointestinal History: Reports: None Genitourinary History: Reports: Prostate Disorder, UTI, Recurrent Musculoskeletal History: Reports: None Neurological History: Reports: None Psychiatric History: Reports: Depression Endocrine/Metabolic History: Reports: Diabetes, Type II Hematologic History: Reports: None Immunologic History: Reports: None Oncologic (Cancer) History: Reports: None Dermatologic History: Reports: Other (See Below) Other Dermatologic History: sores under arms bilaterally and in groin area - Infectious Disease History Infectious Disease History: Reports: None - Past Surgical History Head Surgeries/Procedures: Reports: None Social & Family History - Family History Family Medical History: Noncontributory - Caffeine Use Caffeine Use: Reports: Coffee ED ROS GENERAL - Review of Systems Review Of Systems: ROS reveals no pertinent complaints other than HPI. ED EXAM, GENERAL - Physical Exam Exam: See Below Exam Limited By: No Limitations General Appearance: Other (unkempt) Eye Exam: Bilateral Eye: EOMI, Normal Inspection, PERRL Ears: Normal External Exam, Normal Canal, Hearing Grossly Normal, Normal TMs Nose: Normal Inspection, Normal Mucosa, No Blood Throat/Mouth: Normal Inspection, Normal Lips, Normal Teeth, Normal Gums, Normal Oropharynx, Normal Voice, No Airway Compromise Head: Atraumatic, Normocephalic Neck: Normal Inspection, Supple, Non-Tender, Full Range of Motion Respiratory/Chest: No Respiratory Distress, Lungs Clear, Normal Breath Sounds, No Accessory Muscle Use, Chest Non-Tender Cardiovascular: Normal Peripheral Pulses, Regular Rate, Rhythm, No Edema, No Gallop, No JVD, No Murmur, No Rub GI/Abdominal: Other (obese) (Male) Exam: Deferred Rectal (Males) Exam: Deferred Back Exam: Normal Inspection, Full Range of Motion, NT Extremities: Normal Inspection, Normal Range of Motion, Non-Tender, Normal Capillary Refill, No Pedal Edema Neurological: Alert, Oriented, CN II-XII Intact, Normal Cognition, Normal Gait, Normal Reflexes, No Motor/Sensory Deficits Psychiatric: Normal Affect, Normal Mood Skin Exam: Other (skin tear left hand and knee. ) Course - Vital Signs Last Recorded V/S: Last Vital Signs Temp 36.6 C 09/06/18 20:29 Pulse 68 09/06/18 20:29 Resp 18 09/06/18 20:29 BP 105/44 L 09/06/18 20:29 Pulse Ox 84 L 09/06/18 20:29 - Orders/Labs/Meds Orders: Active Orders 24 hr Category Date Time Status EKG Documentation Completion [RC] URGENT Care 09/06/18 17:24 Active Glucose [Blood Glucose Check, Bedside] [RC] ONETIME Care 09/06/18 20:54 Active CULTURE BLOOD [BC] Stat Lab 09/06/18 17:40 Received CULTURE URINE [RM] Stat Lab 09/06/18 17:30 Received Labs: Laboratory Tests 09/06/18 09/06/18 09/06/18 Range/Units 17:30 17:30 17:40 WBC (5.0-10.0) 10^3/uL RBC (4.6-6.2) 10^6/uL Hgb (14.0-18.0) g/dL Hct (40.0-54.0) % MCV (80-100) fL MCH (27.0-34.0) pg MCHC (33.0-35.0) g/dL Plt Count (150-450) 10^3/uL Neut % (Auto) (42.2-75.2) % Lymph % (Auto) (20.5-50.1) % [place] % (Auto) (2-8) % Eos % (Auto) (1.0-3.0) % Baso % (Auto) (0.0-1.0) % PT (9.0-12.0) SEC INR (0.9-1.2) Sodium (135-145) mmol/L Potassium (3.6-5.0) mmol/L Chloride (101-111) mmol/L Carbon Dioxide (21.0-31.0) mmol/L Anion Gap BUN (7-18) mg/dL Creatinine (0.6-1.3) mg/dL Est Cr Clr Drug Dosing Estimated GFR (MDRD) BUN/Creatinine Ratio Glucose (74-105) mg/dL POC Glucose (83-110) mg/dl Lactic Acid (0.5-2.2) mmol/L Calcium (8.4-10.2) mg/dl Total Bilirubin (0.2-1.0) mg/dL AST (10-42) IU/L ALT (10-60) IU/L Alkaline Phosphatase (42-121) IU/L Ammonia (11-35) umol/L Troponin I (0.00-0.02) ng/ml Total Protein (6.7-8.2) g/dl Albumin (3.2-5.5) g/dl Globulin Albumin/Globulin Ratio Amylase 18 L (28-100) U/L Lipase 18 L (22-51) U/L Urine Color Yellow (YELLOW) Urine Appearance Turbid (CLEAR) Urine pH 6.0 (5.0-9.0) Ur Specific [place] 1.015 (1.005-1.030) Urine Protein 30 H (NEGATIVE) Urine Glucose (UA) >=1000 H (NEGATIVE) Urine Ketones Trace H (NEGATIVE) Urine Occult Blood Large H (NEGATIVE) Urine Nitrite Negative (NEGATIVE) Urine Bilirubin Negative (NEGATIVE) Urine Urobilinogen 1.0 (0.2-1.0) mg/dL Ur Leukocyte Esterase Small H (NEGATIVE) Urine RBC >100 H /HPF Urine WBC Packed H (0-5/HPF) /HPF Ur Epithelial Cells Few (NOT SEEN) /HPF Amorphous Sediment Few (NOT SEEN) /HPF Urine Bacteria Moderate H (0-FEW/HPF) /HPF Urine Mucus Few H (NOT SEEN) /LPF Urine Yeast Many H (NOT SEEN) /HPF Urine Opiates Screen Negative (NEGATIVE) Ur Oxycodone Screen Negative (NEGATIVE) Urine Methadone Screen Negative (NEGATIVE) Ur Barbiturates Screen Negative (NEGATIVE) U Tricyclic Antidepress Negative (NEGATIVE) Ur Phencyclidine Scrn Negative (NEGATIVE) Ur Amphetamine Screen Negative (NEGATIVE) U Methamphetamines Scrn Negative (NEGATIVE) Urine MDMA Screen Negative (NEGATIVE) U Benzodiazepines Scrn Negative (NEGATIVE) Urine Cocaine Screen Negative (NEGATIVE) U Marijuana (THC) Screen Negative (NEGATIVE) Ethyl Alcohol < 5 mg/dL 09/06/18 09/06/18 09/06/18 Range/Units 17:40 17:40 17:40 WBC 7.5 (5.0-10.0) 10^3/uL RBC 4.90 (4.6-6.2) 10^6/uL Hgb 15.5 (14.0-18.0) g/dL Hct 47.6 (40.0-54.0) % MCV 97.1 (80-100) fL MCH 31.6 (27.0-34.0) pg MCHC 32.6 L (33.0-35.0) g/dL Plt Count 239 (150-450) 10^3/uL Neut % (Auto) 74.3 (42.2-75.2) % Lymph % (Auto) 12.1 L (20.5-50.1) % [place] % (Auto) 12.9 H (2-8) % Eos % (Auto) 0.4 L (1.0-3.0) % Baso % (Auto) 0.3 (0.0-1.0) % PT (9.0-12.0) SEC INR (0.9-1.2) Sodium (135-145) mmol/L Potassium (3.6-5.0) mmol/L Chloride (101-111) mmol/L Carbon Dioxide (21.0-31.0) mmol/L Anion Gap BUN (7-18) mg/dL Creatinine (0.6-1.3) mg/dL Est Cr Clr Drug Dosing Estimated GFR (MDRD) BUN/Creatinine Ratio Glucose (74-105) mg/dL POC Glucose (83-110) mg/dl Lactic Acid 2.0 (0.5-2.2) mmol/L Calcium (8.4-10.2) mg/dl Total Bilirubin (0.2-1.0) mg/dL AST (10-42) IU/L ALT (10-60) IU/L Alkaline Phosphatase (42-121) IU/L Ammonia 13 (11-35) umol/L Troponin I (0.00-0.02) ng/ml Total Protein (6.7-8.2) g/dl Albumin (3.2-5.5) g/dl Globulin Albumin/Globulin Ratio Amylase (28-100) U/L Lipase (22-51) U/L Urine Color (YELLOW) Urine Appearance (CLEAR) Urine pH (5.0-9.0) Ur Specific [place] (1.005-1.030) Urine Protein (NEGATIVE) Urine Glucose (UA) (NEGATIVE) Urine Ketones (NEGATIVE) Urine Occult Blood (NEGATIVE) Urine Nitrite (NEGATIVE) Urine Bilirubin (NEGATIVE) Urine Urobilinogen (0.2-1.0) mg/dL Ur Leukocyte Esterase (NEGATIVE) Urine RBC /HPF Urine WBC (0-5/HPF) /HPF Ur Epithelial Cells (NOT SEEN) /HPF Amorphous Sediment (NOT SEEN) /HPF Urine Bacteria (0-FEW/HPF) /HPF Urine Mucus (NOT SEEN) /LPF Urine Yeast (NOT SEEN) /HPF Urine Opiates Screen (NEGATIVE) Ur Oxycodone Screen (NEGATIVE) Urine Methadone Screen (NEGATIVE) Ur Barbiturates Screen (NEGATIVE) U Tricyclic Antidepress (NEGATIVE) Ur Phencyclidine Scrn (NEGATIVE) Ur Amphetamine Screen (NEGATIVE) U Methamphetamines Scrn (NEGATIVE) Urine MDMA Screen (NEGATIVE) U Benzodiazepines Scrn (NEGATIVE) Urine Cocaine Screen (NEGATIVE) U Marijuana (THC) Screen (NEGATIVE) Ethyl Alcohol mg/dL 09/06/18 09/06/18 09/06/18 Range/Units 17:40 17:40 20:57 WBC (5.0-10.0) 10^3/uL RBC (4.6-6.2) 10^6/uL Hgb (14.0-18.0) g/dL Hct (40.0-54.0) % MCV (80-100) fL MCH (27.0-34.0) pg MCHC (33.0-35.0) g/dL Plt Count (150-450) 10^3/uL Neut % (Auto) (42.2-75.2) % Lymph % (Auto) (20.5-50.1) % [place] % (Auto) (2-8) % Eos % (Auto) (1.0-3.0) % Baso % (Auto) (0.0-1.0) % PT 54.6 H D (9.0-12.0) SEC INR 5.9 H* (0.9-1.2) Sodium 137 (135-145) mmol/L Potassium 4.1 (3.6-5.0) mmol/L Chloride 101 (101-111) mmol/L Carbon Dioxide 23.0 (21.0-31.0) mmol/L Anion Gap 17.1 BUN 21 H (7-18) mg/dL Creatinine 1.1 (0.6-1.3) mg/dL Est Cr Clr Drug Dosing TNP Estimated GFR (MDRD) > 60 BUN/Creatinine Ratio 19.09 Glucose 93 (74-105) mg/dL POC Glucose 50 L (83-110) mg/dl Lactic Acid (0.5-2.2) mmol/L Calcium 9.0 (8.4-10.2) mg/dl Total Bilirubin 1.5 H (0.2-1.0) mg/dL AST 36 (10-42) IU/L ALT 18 (10-60) IU/L Alkaline Phosphatase 75 (42-121) IU/L Ammonia (11-35) umol/L Troponin I < 0.02 (0.00-0.02) ng/ml Total Protein 7.5 (6.7-8.2) g/dl Albumin 4.1 (3.2-5.5) g/dl Globulin 3.4 Albumin/Globulin Ratio 1.21 Amylase (28-100) U/L Lipase (22-51) U/L Urine Color (YELLOW) Urine Appearance (CLEAR) Urine pH (5.0-9.0) Ur Specific [place] (1.005-1.030) Urine Protein (NEGATIVE) Urine Glucose (UA) (NEGATIVE) Urine Ketones (NEGATIVE) Urine Occult Blood (NEGATIVE) Urine Nitrite (NEGATIVE) Urine Bilirubin (NEGATIVE) Urine Urobilinogen (0.2-1.0) mg/dL Ur Leukocyte Esterase (NEGATIVE) Urine RBC /HPF Urine WBC (0-5/HPF) /HPF Ur Epithelial Cells (NOT SEEN) /HPF Amorphous Sediment (NOT SEEN) /HPF Urine Bacteria (0-FEW/HPF) /HPF Urine Mucus (NOT SEEN) /LPF Urine Yeast (NOT SEEN) /HPF Urine Opiates Screen (NEGATIVE) Ur Oxycodone Screen (NEGATIVE) Urine Methadone Screen (NEGATIVE) Ur Barbiturates Screen (NEGATIVE) U Tricyclic Antidepress (NEGATIVE) Ur Phencyclidine Scrn (NEGATIVE) Ur Amphetamine Screen (NEGATIVE) U Methamphetamines Scrn (NEGATIVE) Urine MDMA Screen (NEGATIVE) U Benzodiazepines Scrn (NEGATIVE) Urine Cocaine Screen (NEGATIVE) U Marijuana (THC) Screen (NEGATIVE) Ethyl Alcohol mg/dL Meds: Medications Discontinued Medications Generic Name Dose Route Start Last Admin Trade Name Freq PRN Reason Stop Dose Admin Dextrose/Water 50 ml 09/06/18 20:58 09/06/18 21:05 Dextrose 50% In Water IVPUSH 09/06/18 20:59 50 ml ONETIME ONE Administration Aztreonam 1 gm/ Sodium 50 mls @ 100 mls/hr 09/06/18 20:29 09/06/18 20:46 Chloride IV 09/06/18 20:58 100 mls/hr ONETIME ONE Administration Sodium Chloride 1,000 mls @ 150 mls/hr 09/06/18 20:54 09/06/18 21:14 Normal Saline IV 09/07/18 03:33 150 mls/hr .BOLUS ONE Administration Lorazepam 2 mg 09/06/18 19:37 09/06/18 19:45 Ativan IVPUSH 09/06/18 19:38 2 mg ONETIME ONE Administration - Re-Assessments/Exams Free Text/Narrative Re-Assessment/Exam: 09/06/18 18:42 The patient was advised of his lab results and advised to allow us to admit him to the hospital for continued evaluation and management. The patient refused to stay. Nursing staff then came into the patient's room to report that the patient has been in his room talking to people that are not present. The patient was reportedly talking to "Arnulfo" speaking about things he has done days and years ago. The patient reports he was talking to "Brooke". - My Orders Last 24 Hours: My Active Orders 09/06/18 17:24 EKG Documentation Completion [RC] URGENT 09/06/18 17:30 CULTURE URINE [RM] Stat 09/06/18 17:40 CULTURE BLOOD [BC] Stat - Assessment/Plan Last 24 Hours: My Active Orders 09/06/18 17:24 EKG Documentation Completion [RC] URGENT 09/06/18 17:30 CULTURE URINE [RM] Stat 09/06/18 17:40 CULTURE BLOOD [BC] Stat I have read and agree with the documentation that has been completed regarding this visit. By signing this record, I attest that the documentation was completed in my physical presence and is an accurate record of the encounter.
== END 2018-09-06 21:22 ==
LOC: DL.ED 17:15
DX: S61.412A Laceration without foreign body of left hand, initial encounter (principal); S81.012A Laceration without foreign body, left knee, initial encounter; S00.03XA Contusion of scalp, initial encounter; J44.9 Chronic obstructive pulmonary disease, unspecified; R40.4 Transient alteration of awareness; N39.0 Urinary tract infection, site not specified; R31.9 Hematuria, unspecified; R79.1 Abnormal coagulation profile; Z91.19 Patient's noncompliance with other medical treatment and regimen; I48.91 Unspecified atrial fibrillation; E78.00 Pure hypercholesterolemia, unspecified; E11.9 Type 2 diabetes mellitus without complications; Z88.0 Allergy status to penicillin; Z79.4 Long term (current) use of insulin; Z79.01 Long term (current) use of anticoagulants; Z79.899 Other long term (current) drug therapy; W19.XXXA Unspecified fall, initial encounter; Y92.009 Unspecified place in unspecified non-institutional (private) residence as the place of occurrence of the external cause
CPT/HCPCS: 36415; 70450; 71045; 80053; 80305; 81001; 82140; 82150; 82962; 83605; 83690; 84484; 85025; 85610; 87040; 87086; 93005; 96365; 96375; 99285; G0480; J2060; J3490; J7030; J7050; 87088; 87186; J7060

== ENCOUNTER 2021-10-25 09:26 | Inpatient (IN) | payer MEDICARE, MEDICAID ==
[2021-10-25] MEDS ORDERED: Sodium Chloride 0.9% 10 ML Syringe FLUSH PRN (09:33)
[2021-10-25 09:50] VITALS: BP 108/62; PULSE 94
[2021-10-25 10:34] LABS: ANION GAP 10.5 mEq/L (7-13)
[2021-10-25 10:54] LABS: RESPIRATORY SYNCYTIAL VIR NAA NEGATIVE (NEGATIVE)
[2021-10-25 10:55] LABS: CORONAVIRUS COVID-19 NAA POSITIVE (NEGATIVE)
[2021-10-25] MEDS ORDERED: Glucagon,Human Recombinant 1 MG Vial IM PRN (13:19)
[2021-10-25] MEDS ORDERED: 50% Dextrose in Water 50 ML Syringe IVPUSH PRN (13:19)
[2021-10-25] MEDS ORDERED: Dexamethasone 4 MG/ML SDV IVPUSH ONE (13:20)
[2021-10-25] MEDS ORDERED: Albuterol/Ipratropium 3.0-0.5 MG/3 ML Neb Soln NEB PRN (13:26)
[2021-10-25] MEDS ORDERED: Bisacodyl 5 MG Tab PO PRN (13:28)
[2021-10-25] MEDS ORDERED: Ibuprofen 400 MG Tab PO PRN (13:28)
[2021-10-25] MEDS ORDERED: Acetaminophen 325 MG Tab PO PRN (13:28)
[2021-10-25] MEDS ORDERED: Ondansetron 4 MG/2 ML SDV IVPUSH PRN (13:28)
[2021-10-25] MEDS ORDERED: Docusate Sodium 100 MG Cap PO PRN (13:28)
[2021-10-25] MEDS ORDERED: Azithromycin 500 MG in Sodium Chloride 0.9% 250 ML IV ONE (13:30)
[2021-10-25] MEDS ORDERED: Enoxaparin 40 MG/0.4 ML Syringe SUBCUT SCH (13:30)
[2021-10-25] MEDS ORDERED: REMDESIVIR 200 MG in Sodium Chloride 0.9% 250 ML IV ONE (14:00)
[2021-10-25] MEDS ORDERED: cefTRIAXone 1 GM in Sodium Chloride 0.9% 50 ML IV SCH (15:00)
[2021-10-25] MEDS ORDERED: Insulin Lispro 100 Units/ML 3 ML Vial SUBCUT SCH (18:00)
[2021-10-25] MEDS ORDERED: hydrOXYzine HCl 25 MG Tab PO SCH (21:00)
[2021-10-25] MEDS ORDERED: Insulin Glarg,Human.Rec.Analog 100 Unit/ML SUBCUT SCH (21:00)
[2021-10-25] MEDS ORDERED: Carboxymethylcellulose Sodium 1% Ophth Gel 0.4 ML UD EYEBOTH SCH (21:00)
[2021-10-26] MEDS ORDERED: Aspirin 81 MG Tab.EC PO SCH (09:00)
[2021-10-26] MEDS ORDERED: Loratadine 10 MG Tab PO SCH (09:00)
[2021-10-26] MEDS ORDERED: Azithromycin 250 MG Tab PO ONE (09:00)
[2021-10-26] MEDS ORDERED: REMDESIVIR 100 MG in Sodium Chloride 0.9% 100 ML IV SCH (14:00)
== END 2021-10-25 15:40 | disposition left against medical advice (07) | DRG 177 ==
LOC: DL.ED 09:26 → DL.MS 11:57
PROVIDERS: ADMIT Internal Medicine; ATTEND Internal Medicine
DX: U07.1 COVID-19 (principal); J12.82 Pneumonia due to coronavirus disease 2019; Z68.41 Body mass index [BMI] 40.0-44.9, adult; J44.0 Chronic obstructive pulmonary disease with (acute) lower respiratory infection; E66.9 Obesity, unspecified; Z66 Do not resuscitate; J44.1 Chronic obstructive pulmonary disease with (acute) exacerbation; I48.91 Unspecified atrial fibrillation; I50.9 Heart failure, unspecified; F17.200 Nicotine dependence, unspecified, uncomplicated; E78.00 Pure hypercholesterolemia, unspecified; F17.210 Nicotine dependence, cigarettes, uncomplicated; F32.A Depression, unspecified; Z87.440 Personal history of urinary (tract) infections; N42.9 Disorder of prostate, unspecified; E11.9 Type 2 diabetes mellitus without complications; Z79.82 Long term (current) use of aspirin; Z79.4 Long term (current) use of insulin; Z79.899 Other long term (current) drug therapy; Z88.0 Allergy status to penicillin
CPT/HCPCS: 0241U; 36415; 71045; 80053; 83605; 83880; 84484; 85025; 85379; 85610; 87040; 93005; 93010; 99284; J3490

== ENCOUNTER 2022-11-29 18:05 | Emergency (ER) | payer MEDICARE, MEDICAID ==
[2022-11-29] MEDS ORDERED: Levofloxacin 500 MG Tab PO ONE (20:05)
[2022-11-29] MEDS ORDERED: Take Home: Levofloxacin 500 MG Tab, 3 Tab Pack PO ONE (20:05)
[2022-11-29 20:34] VITALS: BP 124/67; PULSE 69
== END 2022-11-29 20:20 | disposition home or self-care (01) ==
LOC: DL.ED 18:05
DX: N45.2 Orchitis (principal); L24.A2 Irritant contact dermatitis due to fecal, urinary or dual incontinence; I11.0 Hypertensive heart disease with heart failure; I50.9 Heart failure, unspecified; E11.9 Type 2 diabetes mellitus without complications; I48.91 Unspecified atrial fibrillation; J44.9 Chronic obstructive pulmonary disease, unspecified; E66.9 Obesity, unspecified; Z68.30 Body mass index [BMI] 30.0-30.9, adult; Z88.0 Allergy status to penicillin; Z79.82 Long term (current) use of aspirin; Z79.4 Long term (current) use of insulin; Z79.899 Other long term (current) drug therapy
CPT/HCPCS: 99284; A9270

== ENCOUNTER 2022-12-26 13:42 | Emergency (ER) | payer MEDICARE, OTHER, MEDICAID ==
[2022-12-26] MEDS ORDERED: Silver Sulfadiazine 1% Crm 400 GM Jar TOP ONE (13:43)
[2022-12-26] MEDS ORDERED: fentaNYL 100 MCG/2 ML SDV ONE ×2 (13:53→15:01)
[2022-12-26] MEDS ORDERED: MIDAZOLAM IV ONE ×2 (14:30→16:00)
[2022-12-26] MEDS ORDERED: SODIUM CHLORIDE 0.9% IV ONE ×2 (14:30→16:00)
[2022-12-26] MEDS ORDERED: FENTANYL IV ONE ×2 (14:30→16:00)
[2022-12-26 14:32] LABS: O2 DELIVERY DEVICE VENTILATOR
[2022-12-26 14:37] LABS: BASE EXCESS ARTERIAL -1 mmol/L ((-2)-(+3)); BICARBONATE,ARTERIAL 26.1 mmol/L (22-26); O2 SATURATION ARTERIAL 99 % (95-100); PCO2 ARTERIAL 54 mmHg (35-45); PH,ARTERIAL 7.31 (7.35-7.45); PO2 ARTERIAL 187 mmHg (70-100)
[2022-12-26 14:38] LABS: ALLEN TEST posiive
[2022-12-26 15:23] VITALS: BP 141/77; PULSE 73
== END 2022-12-26 16:34 ==
LOC: DL.ED 13:42
DX: T22.212A Burn of second degree of left forearm, initial encounter (principal); T24.202A Burn of second degree of unspecified site of left lower limb, except ankle and foot, initial encounter; T24.201A Burn of second degree of unspecified site of right lower limb, except ankle and foot, initial encounter; T21.22XA Burn of second degree of abdominal wall, initial encounter; X08.8XXA Exposure to other specified smoke, fire and flames, initial encounter; I48.91 Unspecified atrial fibrillation; J44.9 Chronic obstructive pulmonary disease, unspecified; E78.00 Pure hypercholesterolemia, unspecified; E66.9 Obesity, unspecified; E11.9 Type 2 diabetes mellitus without complications; Z88.0 Allergy status to penicillin; Z79.82 Long term (current) use of aspirin
CPT/HCPCS: 16025; 31500; 36600; 43752-52; 51702; 71045; 82803; 96360; 99285-25